=== PATIENT | female | born 1955 | race Caucasian/White ===

== ENCOUNTER → 2018-01-12 | Day surgery (SDC) | payer OTHER ==
[2018-01-11 10:45] VITALS: Ht 165.1 cm; Wt 68.2 kg
[~2018-01-12] VITALS: Ht 165.1 cm; Wt 68.2 kg
[~2018-01-12] MED LIST: AZIT250T PO; CALC-354 PO; CLBCRM30 EXT; ERGO500037 PO; ESTR0.5T3 PO; FLUT1INH INH; IPRA-64 INH; LIDOCAINE HCL 2% 2 ML VIAL (20MG/ML) ONE; MIDAZOLAM HCL 1 MG/ML 2ML VIAL ONE; MONT1TAB3 PO; MULTTAB PO; NYST80OI TOP; ONDANSETRON INJ 2 MG/ML 2 ML VIAL ONE; OXYB5TAB21 PO; PANT40TA PO; POLY335019 PO; PRED20TA2 PO; PROPOFOL IV EMULSION 10 MG/ML 20 ML VIAL ONE; RANI150T85 PO; SENN8.6C; SERT50TA PO; SODIUM CHLORIDE 0.9% 500ML 500 ML IV ONE; TIOT1SPR INH; TOPI25TA99 PO; VNTHFA/IN INH
--- NOTE | 2018-01-12 08:13 | Endo History and Physical ---
History & Physical Date of Service: Jan 12, 2018. Chief Complaint: Referring Physician: History of Present Illness Refractory GERD Past Surgical History Hx Cardiac Surgery: No Hx Internal Defibrillator: No Hx Pacemaker: No Hx Abdominal Surgery: Yes (CHOLECYSTECTOMY, HYSTER W OOPHERECTOMY (NOT SURE WHICH OVARY)) Hx of Implantable Prosthesis: No Hx Post-Op Nausea and Vomiting: No Hx Cancer Surgery: No Hx Thoracic Surgery: No Hx Orthopedic: Yes (L ROTATOR CUFF) Hx Urinary Tract Surgery: No Family History None Social History Smoking Status: Former Smoker Hx Substance Use: No Hx Alcohol Use: No Allergies Coded Allergies: Levofloxacin (Verified Allergy, Mild, ITCHY, 01/11/18) Metoclopramide (Verified Allergy, Mild, FREQUENCY OF URINATION, 01/11/18) Triamcinolone (Verified Allergy, Mild, FACE TURNS RED, 01/11/18) Amoxicillin (Unverified Allergy, Unknown, unknown, 05/03/13) Clavulanic Acid (Unverified Allergy, Unknown, unknown, 05/03/13) Codeine (Unverified Allergy, Unknown, unknown, 05/03/13) Egg Yolk (Unverified Allergy, Unknown, GI SYMPTOMS, 05/03/13) Hydromorphone (Unverified Allergy, Unknown, unknown, 05/03/13) Sulfa Drugs (Unverified Allergy, Unknown, unknown, 05/03/13) Current Medications Reported Home Medications Medications Dose Route/Sig Max Daily Dose Days Date Category Dose Instructions Duoneb (Ipratropium-Albuterol) 3 Ml Nebu 1 Treatment INH Q6 PRN 01/11/18 Reported Breo Ellipta (Fluticasone Furoate-Vilanterol) 1 Inh Inh 1 Puff INH DAILY 01/11/18 Reported Nystatin (Nystatin (Topical)) 100,000 Unit/Gm Oin 1 Appln TOP DIRECTED PRN 01/11/18 Reported Prednisone Tab (Prednisone) 20 Mg Tab 20 Mg PO DIRECTED PRN 01/11/18 Reported Zithromax (Azithromycin) 250 Mg Tab 250 Mg PO DIRECTED PRN 01/11/18 Reported Ditropan Xl (Oxybutynin Chloride) 5 Mg Tab 1 Tab PO QPM 01/11/18 Reported Topamax (Topiramate) 25 Mg Tab 25 Mg PO BID 01/11/18 Reported Vitamin D 70646 Unit (Ergocalciferol) 50,000 Unit Cap 50,000 Unit PO WK 01/11/18 Reported Singulair (Montelukast Sodium) 10 Mg Tab 10 Mg PO QAM 01/11/18 Reported Protonix (Pantoprazole Sodium) 40 Mg Tab 40 Mg PO BID 01/11/18 Reported Zantac (Ranitidine HCl) 150 Mg Tab 150 Mg PO BID 01/11/18 Reported Clobetasol Propionate Cream 0.05% (Clobetasol Propionate) 90 Appln/30 Gm Cr 1 Appln EXT DIRECTED PRN 01/11/18 Reported Spiriva Respimat (Tiotropium [place]) 2.5 Mcg/Act Spr 2 Puff INH DAILY 01/11/18 Reported Ventolin Hfa (Albuterol) 200 Puffs/59119 Mcg Aers 2-4 Puffs INH Q4 PRN 01/11/18 Reported Caltrate 600+D (Calcium Carbonate-Cholecalcife) 1 Tab Tab 1 Tablet PO BID 05/03/13 Reported Senna (Sennosides) 8.6 Mg Cap 2 Tablets PRN 05/03/13 Reported Mvi With Minerals (Multivitamins/Minerals) Tab 1 Tab PO DAILY 05/03/13 Reported Zoloft (Sertraline Hcl) 50 Mg Tab 50 Mg PO DAILY 05/03/13 Reported Estradiol 0.5 Mg Tab 0.5 Mg PO QPM 05/03/13 Reported TAKE ONE PILL DAILY FOR 21 DAYS, THEN STOP FOR 7 DAYS AND RESTART UD Miralax (Polyethylene Glycol 3350) 1 Pow Pow 1 Dose PO UD 05/03/13 Reported DISSOLVE 1/2 BOTTLE IN ONE QUART GATORADE THE NIGHT PRIOR TO VCOLONOSCOPY, REPEAT 6 HRS PRIOR TO COLONOSCOPY UD. Vital Signs Weight (Kilograms): 68.18 Height (Feet): 5 Height (Inches): 5 Physical Exam General Appearance: no apparent distress Respiratory/Chest: Auscultation: breath sounds normal Cardiovascular: Heart Auscultation: RRR Abdomen: Inspection & Palpation: soft, non-distended Assessment and Plan Stable for EGD
--- NOTE | 2018-01-12 09:09 | GI REPORT ---
Patient Name: Mariana Valerio Procedure Date: 01/12/2018 8:18 AM Date of : 1955 Admit Type: Outpatient Age: 62 Gender: Female Attending MD: Jess Weeks MD Procedure: Upper GI endoscopy Providers: Jess Weeks MD Referring MD: Heaven Morales Indications: Esophageal reflux symptoms that persist despite appropriate therapy Medicines: Monitored Anesthesia Care Complications: No immediate complications. Estimated Blood Loss: Estimated blood loss: none. Procedure: Pre-Anesthesia Assessment: - Prior to the procedure, a History and Physical was performed, and patient medications and allergies were reviewed. The patient is competent. The risks and benefits of the procedure and the sedation options and risks were discussed with the patient. All questions were answered and informed consent was obtained. Patient identification and proposed procedure were verified by the physician and the nurse in the procedure room. Mental Status Examination: alert and oriented. Airway Examination: normal oropharyngeal airway and neck mobility. Respiratory Examination: clear to auscultation. CV Examination: normal. ASA Grade Assessment: II - A patient with mild systemic disease. After reviewing the risks and benefits, the patient was deemed in satisfactory condition to undergo the procedure. The anesthesia plan was to use monitored anesthesia care (MAC). Immediately prior to administration of medications, the patient was re-assessed for adequacy to receive sedatives. The heart rate, respiratory rate, oxygen saturations, blood pressure, adequacy of pulmonary ventilation, and response to care were monitored throughout the procedure. The physical status of the patient was re-assessed after the procedure. After obtaining informed consent, the endoscope was passed under direct vision. Throughout the procedure, the patient's blood pressure, pulse, and oxygen saturations were monitored continuously. The scope was introduced through the mouth, and advanced to the second part of duodenum. The upper GI endoscopy was accomplished without difficulty. The patient tolerated the procedure well. Findings: Multiple areas of ectopic gastric mucosa were found in the upper third of the esophagus, 20 cm from the incisors. Vaporization for tissue destruction using argon plasma was successful. LA Grade A (one or more mucosal breaks less than 5 mm, not extending between tops of 2 mucosal folds) esophagitis with no bleeding was found at the gastroesophageal junction. A hiatal hernia was found. The proximal extent of the gastric folds (end of tubular esophagus) was 35 cm from the incisors. The hiatal narrowing was 39 cm from the incisors. A few small sessile polyps with no stigmata of recent bleeding were found in the gastric body. The duodenal bulb and second portion of the duodenum were normal. Impression: - Ectopic gastric mucosa in the upper third of the esophagus. Treated with argon plasma coagulation (APC). - LA Grade A reflux esophagitis. - Hiatal hernia. - A few gastric polyps consistent with fundic gland polyps. - Normal duodenal bulb and second portion of the duodenum. - No specimens collected. Recommendation: - Discharge patient to home. - Follow an antireflux regimen. - Continue present medications Carafate and Protonix. - Viscous Lidocaine for 5 days. - In view of refractory symptoms and presence of large HH, consider referral to a surgeon for fundoplication. - Return to referring physician. Jess Weeks MD 01/12/2018 9:08:49 AM This report has been signed electronically. Note Initiated On: 01/12/2018 8:18 AM Number of Addenda: 0 I attest to the content of the Intraoperative Record and orders documented therein, exceptions below {[id number]}
--- NOTE | 2018-01-12 09:10 | Discharge Instructions ---
Endoscopy Patient Instructions Date / Procedure(s) Performed Jan 12, 2018. EGD Allergy Information Coded Allergies: Levofloxacin (Verified Allergy, Mild, ITCHY, 01/11/18) Metoclopramide (Verified Allergy, Mild, FREQUENCY OF URINATION, 01/11/18) Triamcinolone (Verified Allergy, Mild, FACE TURNS RED, 01/11/18) Amoxicillin (Unverified Allergy, Unknown, unknown, 05/03/13) Clavulanic Acid (Unverified Allergy, Unknown, unknown, 05/03/13) Codeine (Unverified Allergy, Unknown, unknown, 05/03/13) Egg Yolk (Unverified Allergy, Unknown, GI SYMPTOMS, 05/03/13) Hydromorphone (Unverified Allergy, Unknown, unknown, 05/03/13) Sulfa Drugs (Unverified Allergy, Unknown, unknown, 05/03/13) Discharge Date / Findings Jan 12, 2018. Inlet patches, treated with APC Large Hiatal Hernia Mild Esophagitis. Provider Instructions Activity Restrictions - No exercising or heavy lifting for 24 hours. - Do not drink alcohol the day of the procedure. - Do not drive a car or operate machinery until the day after the procedure. - Do not make any important decisions or sign important papers in 24 hours after the procedure. Following Day: - Return to full activity which may include returning to work/school. Diet Start your diet with liquids and light foods (jello, soup, juice, toast). Then eat your usual diet if not nauseated. Treatment For Common After Affects For mild abdominal pain, bloating, or excessive gas: - Rest - Eat lightly - Lie on right side Follow-Up Information Follow-up with DR. CLAUDIO as scheduled Anesthesia Information What You Should Know You have had a procedure that required some medicine to reduce anxiety and discomfort. This treatment is called moderate sedation. After receiving the treatment, you may be sleepy, but you will be able to breathe on your own. The effects of the treatment may last for several hours. Follow these instructions along with Activity/Diet recommendations noted above: * Do NOT do anything where dizziness or clumsiness would be dangerous. * Rest quietly at home today, then you can be up and about tomorrow. * Have a responsible person stay with you the rest of today. * You may have had an I.V. today. If so, you may take the dressing off later today. Recommendations Call your doctor if: * Trouble breathing * Continuous vomiting for more than 24 hours * Temperature above 101 degrees * Severe abdominal pain or bloating * Pain not relieved by pain medicine ordered * There is increased drainage or redness from any incision * A large amount of rectal bleeding greater than 2-3 tablespoons. (If you had a polyp/s removed or have hemorrhoids, a small amount of blood - from the rectum is to be expected.) * You have any unanswered questions or concerns. IN THE EVENT OF A SERIOUS EMERGENCY, GO TO THE NEAREST EMERGENCY ROOM Your discharge instructions were prepared by provider Jess Weeks. Patient Instructions Signature Page Mariana Valerio Patient (or Guardian) Signature/Date: I have read and understand the instructions given to me by my caregivers. Caregiver/RN/Doctor Signature/Date: The above-named patient and/or guardian has received patient instructions on this date. + Original Patient Signature Page (only) stays with chart. Please make copy for patient.
--- NOTE | 2018-01-12 09:11 | Anesthesiology Progress Note ---
Anesthesia Post Op Note Date & Time Jan 12, 2018 at 09:11 Vital Signs Pain Intensity: 0 Vital Signs Past 12 Hours Date Time Temp Pulse Resp B/P (MAP) Pulse Ox O2 Delivery O2 Flow Rate FiO2 01/12/18 09:01 65 16 92/56 (68) 98 Room Air 01/12/18 08:14 36.5 68 16 117/69 (85) 96 Room Air Notes Mental Status: alert / awake / arousable, participated in evaluation Pt Amnestic to Procedure: Yes Nausea / Vomiting: adequately controlled Pain: adequately controlled Airway Patency, RR, SpO2: stable & adequate BP & HR: stable & adequate Hydration State: stable & adequate Anesthetic Complications: no major complications apparent
[2018-01-12 09:33] VITALS: BP 132/109; PULSE 64; O2SAT 97
== END | disposition home or self-care (01) ==
LOC: C.GI 07:25
PROVIDERS: ATTEND Student in an Organized Health Care Education/Training Program
DX: K21.0 Gastro-esophageal reflux disease with esophagitis (principal); K44.9 Diaphragmatic hernia without obstruction or gangrene; J44.9 Chronic obstructive pulmonary disease, unspecified; F41.9 Anxiety disorder, unspecified; Z87.891 Personal history of nicotine dependence; Z88.0 Allergy status to penicillin; Z88.2 Allergy status to sulfonamides; Z88.5 Allergy status to narcotic agent; Z91.012 Allergy to eggs; Z79.899 Other long term (current) drug therapy